=== PATIENT | male | born 1985 | race African-American/Black ===

== ENCOUNTER 2018-12-10 21:23 | Emergency (ER) | payer OTHER ==
[~2018-12-10] VITALS: Ht 193 cm; Wt 113.4 kg
[2018-12-10 21:33] VITALS: BP_SYST 134
--- NOTE | 2018-12-10 21:44 | NUR ---
Pt c/o SI, depression, and hearing voices since today. Pt verbalizes an urgent plan to lay in front of a train. 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 Pt states "I can't even keep track of the voices and my eyes are playing tricks on me." Pt states that he's been feeling on edge today. He also states "I don't feel like I'm a real Schizophrenic, I think it's from doing drugs." Pt takes Wellbutrin with last dose taken a few weeks ago. Pt states that he has had a previous SI attempt by cutting his arms. Pt's present demeanor is calm, cooperative with a flat affect.
--- NOTE | 2018-12-10 21:52 | NUR ---
Pt placed to ER bed 6, report given to DEBORAH Sherman. Patient placed on suicide precautions. Patient placed in room within close proximity to nurses' station for closer observation and monitoring. All clothing removed, placed in hospital gown. Metal detector wand used to further screen patient of any potential hazardous belongings. All belongings inventoried, placed in bags and removed from room. Cabinets locked. BP and pulse oximeter cords, and child monitor leads removed. Sitter at bedside. Side rails up.
--- NOTE | 2018-12-10 22:10 | NUR ---
Pt taken to shower, escorted by security.
--- NOTE | 2018-12-10 22:25 | NUR ---
Dr. Bernard at bedside examining Pt.
[2018-12-10 22:34] LABS: BILIRUBIN,URINE NEGATIVE (NEGATIVE); BLOOD, URINE NEGATIVE (NEGATIVE); CLARITY/URINE CLEAR (CLEAR); COLOR,URINE YELLOW (YELLOW); GLUCOSE,URINE NEGATIVE (NEGATIVE); KETONES,URINE NEGATIVE (NEGATIVE); LEUKOCYTE ESTERASE ,URINE NEGATIVE (NEGATIVE); NITRITE, URINE NEGATIVE (NEGATIVE); PH,URINE 5.5 (5.0-8.0); PROTEIN URINE NEGATIVE (NEGATIVE); UROBILINOGEN,URINE 0.2 (0.2-1.0)
[2018-12-10 22:42] LABS: BASOPHILS # (AUTO) 0.1 K/uL (0.0-0.2); BASOPHILS % (AUTO) 1.7 % (0.0-2.0); EOSINOPHILS # (AUTO) 0.3 K/uL (0.0-0.4); EOSINOPHILS % (AUTO) 5.8 % (0.0-4.0); HEMATOCRIT 41.9 % (36-54); HEMOGLOBIN 13.8 g/dL (14.0-18.0); LYMPHOCYTES % (AUTO) 45.4 % (20.5-51.5); MEAN CORPUSCULAR HEMOGLOBIN 30 pg (27-31); MEAN CORPUSCULAR HGB CONC 33 % (32-36); MEAN CORPUSCULAR VOLUME 91 fL (79.0-98.0); MONOCYTES # (AUTO) 0.3 K/uL (0.0-1.0); MONOCYTES % (AUTO) 7.5 % (1.7-9.3); NEUTROPHILS # (AUTO) 1.8 K/uL (1.8-7.7); NEUTROPHILS % (AUTO) 39.6 % (40.0-70.0); PLATELET COUNT (AUTO) 175 K/uL (130-430); RED CELL DISTRIBUTION WIDTH 14.8 % (9.0-15.0); WHITE BLOOD COUNT (AUTO) 4.5 K/uL (4.8-10.8)
[2018-12-10 22:48] LABS: BARBITURATE, URINE NEGATIVE (NEG <=200); BENZODIAZEPINE, URINE NEGATIVE (NEG <=150); CANNABINOID, URINE NEGATIVE (NEG <=50); COCAINE, URINE NEGATIVE (NEG <=150); METHAMPHETAMINES SCREEN,URINE POSITIVE (NEG <=500); OPIATE, URINE NEGATIVE (NEG <=100); PHENCYCLIDINE SCREEN,URINE NEGATIVE (NEG <=25); UR TRICYCLIC ANTIDEPRESSANTS NEGATIVE (NEG <=300); URINE AMPHETAMINE POSITIVE (NEG <=500); URINE METHADONE NEGATIVE (NEG <=200); URINE OXYCODONE SCREEN NEGATIVE (NEG <=100); URINE PROPOXYPHENE SCREEN NEGATIVE (NEG <=300)
--- NOTE | 2018-12-10 23:00 | NUR ---
Pt in bed resting and watching TV. No s/s of distress noted. Pt respiration even and unlabored. Sitter at bedside. Will continue to monitor.
[2018-12-10 23:05] LABS: ANION GAP 4 (5-15); CALCIUM 8.4 mg/dL (8.4-11.0); CHLORIDE 103 mmol/L (98-107); CREATININE 1.06 mg/dL (0.55-1.30); GLUCOSE 91 mg/dL (70-99); POTASSIUM 3.6 mmol/L (3.5-5.1); SODIUM SERUM 133 mmol/L (136-145); UREA NITROGEN, BLOOD 19 mg/dL (8-21)
[2018-12-10 23:09] LABS: ALANINE AMINOTRANSFERASE 42 U/L (12-78); ALBUMIN 3.8 g/dL (3.4-4.8); ASPARTATE AMINOTRANSFERASE 59 U/L (10-37); CHOLESTEROL 178 mg/dL (<200); HDL CHOLESTEROL 49 mg/dL (>45); LDL CHOLESTEROL 105 mg/dL (<100); TOTAL BILIRUBIN 0.5 mg/dL (0.0-1.0); TRIGLYCERIDES 101 mg/dL (30-150)
[2018-12-10 23:15] LABS: ACETAMINOPHEN < 1 ug/mL (1-30); ALCOHOL, BLOOD < 3 mg/dL (<10); GFR AFRICAN AMERICAN 105 mL/min (>90)
--- NOTE | 2018-12-11 | NUR ---
Pt resting in bed watching TV. Pt flat affect. No s/s of distress noted. Will continue to monitor.
--- NOTE | 2018-12-11 00:30 | NUR ---
Pt in bed resting. Watching TV. No s/s of distress noted. Pt has flat affect. Able to make needs known. Pt has sitter at bedside. Will continue to monitor.
--- NOTE | 2018-12-11 01:00 | NUR ---
Pt asleep in bed. No s/s of distress noted. Pt has sitter bedside. Will continue to monitor.
--- NOTE | 2018-12-11 01:30 | NUR ---
Pt asleep. No s/s of distress noted. Will continue to monitor.
--- NOTE | 2018-12-11 02:00 | NUR ---
Pt in bed asleep. No s/s of distress noted. Pt has even unlabored breathing. Sitter remains at bedside. Will continue to monitor.
--- NOTE | 2018-12-11 02:30 | NUR ---
Pt asleep supine in bed. Even and unlabored respirations. No s/s of distress noted. Will continue to monitor.
--- NOTE | 2018-12-11 03:00 | NUR ---
Pt asleep. VSS. No s/s of distress noted. Will continue to monitor.
--- NOTE | 2018-12-11 03:30 | NUR ---
Pt asleep on stomach. Sitter at bedside. Will continue to monitor.
--- NOTE | 2018-12-11 04:00 | NUR ---
Pt asleep in bed. No s/s of distress noted. Pt has sitter bedside. Will continue to monitor.
--- NOTE | 2018-12-11 04:30 | NUR ---
Pt in bed asleep. No s/s of distress noted. Will continue to monitor.
--- NOTE | 2018-12-11 05:00 | NUR ---
Pt asleep in bed. No s/s of distress noted. Pt has sitter bedside. Will continue to monitor.
--- NOTE | 2018-12-11 05:30 | NUR ---
Pt asleep in bed. No s/s of distress noted. Pt has sitter bedside. Will continue to monitor.
--- NOTE | 2018-12-11 06:00 | NUR ---
Pt resting in bed. Pt requesting breakfast. No s/s of distress noted. Pt has sitter bedside. Will continue to monitor.
--- NOTE | 2018-12-11 06:30 | NUR ---
Pt in bed and fell back asleep. Waiting for breakfast. Sitter at bedside will continue to monitor.
--- NOTE | 2018-12-11 07:00 | NUR ---
Pt in bed asleep. No s/s of distress noted. Sitter at bedside. Will endorse to oncoming RN.
--- NOTE | 2018-12-11 07:16 | NUR ---
Report given to oncoming RN at bedside via SBAR approach. Pt stable.
--- NOTE | 2018-12-11 07:20 | NUR ---
Report received from Lane CABRERA. Pt is here for SI. Siiter is at the bedside. Pt is in stable condition.
[2018-12-11] MEDS ORDERED: POTASSIUM ACETATE IV SCH (07:28)
[2018-12-11] MEDS ORDERED: D5 IV SCH (07:28)
[2018-12-11] MEDS ORDERED: [UNRECOGNIZED DRUG - OTHER] IV SCH (07:28)
[2018-12-11] MEDS ORDERED: ACETAMINOPHEN 325 MG TABLET PO PRN (07:30)
--- NOTE | 2018-12-11 07:30 | NUR ---
Pt is resting in bed. Sitter is at the bedside.
--- NOTE | 2018-12-11 07:45 | NUR ---
Pt is eating breakfast. Sitter at the bedside.
--- NOTE | 2018-12-11 08:00 | NUR ---
pt is awake and resting in his gurney.
--- NOTE | 2018-12-11 08:15 | NUR ---
pt is resting in bed. Sitter at the bedside.
--- NOTE | 2018-12-11 08:30 | NUR ---
pt is sleeping. eyes are closed
[2018-12-11] MEDS ORDERED: CEFEPIME 1 GM in D5W 50 ML IV SCH (09:00)
--- NOTE | 2018-12-11 09:00 | NUR ---
pt is sleeping in bed, eyes are closed.
--- NOTE | 2018-12-11 10:00 | NUR ---
pt is awake and resting in bed
--- NOTE | 2018-12-11 11:00 | NUR ---
pt is awake and resting in bed
--- NOTE | 2018-12-11 12:00 | NUR ---
pt is having lunch. 1:1 sitter at the bedside
--- NOTE | 2018-12-11 13:00 | NUR ---
pt continues to resting quietly in bed.
--- NOTE | 2018-12-11 13:14 | NUR ---
Called [place] to given report at [phone] ext [phone]. Associate Professor Of Archaeology answered, I was placed on hold. Call was disconnected. Will call again.
--- NOTE | 2018-12-11 13:21 | NUR ---
Second attempt to was done to give report at [facility] [phone]. Once again the television maintenance man answered and then hung up.
--- NOTE | 2018-12-11 14:00 | NUR ---
attempted to give report to [place] at ext [phone]. Inside Sales Coordinator answered the phone and hung up.
[2018-12-11 14:20] VITALS: BP_SYST 134
--- NOTE | 2018-12-11 14:20 | NUR ---
Patient to be transferred to [facility]. Report given to paramedics. Pt in stable condition. belongings sent with the pt. Transfer consent signed.
--- NOTE | 2018-12-11 15:00 | NUR ---
Report given to Patience nurse prepress manager at [facility].
== END 2018-12-11 15:00 ==
LOC: SED 21:23 → STU 12-11 07:28 → UNDOADMIN 12-11 07:28 → STU 12-11 07:50 → SED 12-11 15:00
DX: F32.9 Major depressive disorder, single episode, unspecified (principal); R45.851 Suicidal ideations; F15.10 Other stimulant abuse, uncomplicated
CPT/HCPCS: 36415; 80053; 80061; 80307; 81003; 83036; 85025; 99285; G0480; G0481; G0482